=== PATIENT | female | born 1985 | race Caucasian/White ===

== ENCOUNTER 2019-02-26 08:52 | Inpatient (IN) | payer MEDICAID ==
[~2019-02-26] VITALS: Ht 154.9 cm; Wt 61.2 kg
[~2019-02-26 08:52] MED LIST: PNV1CAPS17
[2019-02-26] MEDS ORDERED: LACTATED RINGERS 1,000 ML IV SCH (09:40)
[2019-02-26 09:54] LABS: UCG SCREEN NEGATIVE
[2019-02-26] MEDS ORDERED: EPINEPHRINE 1:1000 1 MG/ML AMP ONE (10:05)
[2019-02-26] MEDS ORDERED: MORPHINE SULFATE/PF 1MG/ML 10ML AMP ONE (10:05)
[2019-02-26] MEDS ORDERED: BUPIVACAINE HCL/EPINEPHRINE/PF 0.5%/0.0005 10ML ONE (10:29)
[2019-02-26] MEDS ORDERED: ROPIVACAINE HCL 10MG/ML 20 ML VIAL EPI ONE (10:34)
[2019-02-26] MEDS ORDERED: FENTANYL CITRATE/PF 50MCG/ML 2ML VIAL ONE ×3 (10:38→14:15)
[2019-02-26] MEDS ORDERED: CEFAZOLIN SODIUM 1000MG/VIAL ONE (10:38)
[2019-02-26] MEDS ORDERED: ROCURONIUM BROMIDE 10MG/ML VIAL 5ML IV ONE (10:38)
[2019-02-26] MEDS ORDERED: MIDAZOLAM HCL 2 MG/2 ML VIAL ONE (10:38)
[2019-02-26] MEDS ORDERED: GLYCOPYRROLATE 0.2 MG/ML 2ML VIAL ONE (10:38)
[2019-02-26] MEDS ORDERED: NEOSTIGMINE METHYLSULFATE 1MG/ML 10 ML VIAL ONE (10:38)
[2019-02-26] MEDS ORDERED: SODIUM CHLORIDE 0.9% 10ML VIAL ONE (10:38)
[2019-02-26] MEDS ORDERED: PROPOFOL 200MG/20ML VIAL IV ONE ×2 (10:38→11:06)
[2019-02-26] MEDS ORDERED: METOCLOPRAMIDE HCL 10MG/2ML VIAL ONE (10:39)
[2019-02-26] MEDS ORDERED: ONDANSETRON HCL 4MG/2ML INJ ONE (10:39)
[2019-02-26] MEDS ORDERED: PHENYLEPHRINE HCL 10 MG/ML 1ML (IV VIAL) IV ONE (10:39)
[2019-02-26] MEDS ORDERED: SUCCINYLCHOLINE CHLORIDE 200MG/10ML IV ONE (10:39)
[2019-02-26] MEDS ORDERED: DEXAMETHASONE 4MG/ML 1ML VIAL ONE (10:39)
[2019-02-26] MEDS ORDERED: EPHEDRINE SULFATE 50MG/ML VIAL ONE (10:39)
[2019-02-26] MEDS ORDERED: BUPIVACAINE HCL/EPINEPHRINE 0.25%/0.0005 50ML ONE (11:35)
[2019-02-26] MEDS ORDERED: SODIUM CHLORIDE 0.9% 1,000 ML IV ONE (14:39)
[2019-02-26] MEDS ORDERED: HYDROMORPHONE HCL/PF 2MG/ML CPJ IV PRN (14:45)
[2019-02-26] MEDS ORDERED: MORPHINE SULFATE 2 MG/ML CPJ (NOT FOR IM USE) IV PRN (14:45)
[2019-02-26] MEDS ORDERED: MEPERIDINE HCL/PF 25MG/ML CPJ IV PRN ×2 (14:45)
[2019-02-26] MEDS ORDERED: ONDANSETRON HCL 4MG/2ML INJ IV PRN ×2 (14:45→17:00)
[2019-02-26] MEDS ORDERED: HYDROMORPHONE PCA 10MG/50ML IV PRN (16:00)
[2019-02-26] MEDS ORDERED: NALOXONE INJ IV PRN (16:00)
[2019-02-26] MEDS ORDERED: DIPHENHYDRAMINE INJ IV PRN (16:00)
[2019-02-26] MEDS ORDERED: ONDANSETRON INJ IV PRN (16:00)
[2019-02-26] MEDS ORDERED: HYDROCODONE/ACETAMINOPHEN 5/325MG TABLET PO PRN ×2 (17:00)
[2019-02-26] MEDS ORDERED: ACETAMINOPHEN 325MG TABLET PO PRN (17:00)
[2019-02-26 20:00] VITALS: BP 98/51
[2019-02-26] MEDS ORDERED: ZOLPIDEM TARTRATE 5MG TABLET PO PRN (21:00)
[2019-02-26 23:30] VITALS: BP 104/65
[2019-02-27] VITALS: BP 96/59
[2019-02-27] MEDS: CEFAZOLIN 2,000 MG in DEXT 5% WATER 100 ML IV SCH ×2 (03:44→09:55)
[2019-02-27 04:00] VITALS: BP 98/51
[2019-02-27 08:00] VITALS: BP 100/58
[2019-02-27 08:57] LABS: BASOPHILS % 0.2 % (0.0-2.0); EOSINOPHILS % 0.2 % (0.0-5.0); HEMATOCRIT. 35.2 % (36.0-48.0); LYMPHOCYTES % 22.1 % (20.0-50.0); MEAN CORPUSCULAR HEMOGLOBIN 31.8 pg (28.0-32.0); MEAN CORPUSCULAR VOLUME 93.4 fL (81.0-99.0); MEAN PLATELET VOLUME 8.2 fl (7.4-10.4); MONOCYTES % 10.1 % (2.0-8.0); NEUTROPHILS % 67.4 % (40.0-76.0); PLATELET 249 x1000/uL (130-400); RED BLOOD CELL COUNT 3.76 mill/uL (4.2-5.4); RED CELL DISTRIBUTION WIDTH 13.4 % (11.6-14.6)
[2019-02-27 09:04] LABS: CHLORIDE 108 mEq/L (98-107)
[2019-02-27] MEDS: CELECOXIB 200MG CAPSULE PO SCH ×2 (09:56→16:28)
[2019-02-27 12:00] VITALS: BP 109/67
[2019-02-27] MEDS ORDERED: ENOXAPARIN 40MG/0.4ML SYR SUBCUT SCH (12:00)
[2019-02-27] MEDS ORDERED: POTASSIUM CHLORIDE 20MEQ TABLET SR PO SCH (12:00)
[2019-02-27 14:58] VITALS: BP 132/78
== END 2019-02-27 17:30 | disposition home or self-care (01) | DRG 313 ==
LOC: OR 08:52 → 6EST 23:04
PROVIDERS: ADMIT Orthopaedic Surgery; ATTEND Orthopaedic Surgery
PROC: 0MRN47Z Replacement of Right Knee Bursa and Ligament with Autologous Tissue Substitute, Percutaneous Endoscopic Approach (ICD-10-PCS; principal; 2019-02-26)
PROC: 0SBC4ZZ Excision of Right Knee Joint, Percutaneous Endoscopic Approach (ICD-10-PCS; 2019-02-26)
PROC: 0LBQ4ZZ Excision of Right Knee Tendon, Percutaneous Endoscopic Approach (ICD-10-PCS; 2019-02-26)
DX: S83.511A Sprain of anterior cruciate ligament of right knee, initial encounter (principal); M65.9 Synovitis and tenosynovitis, unspecified; S83.241A Other tear of medial meniscus, current injury, right knee, initial encounter; S83.281A Other tear of lateral meniscus, current injury, right knee, initial encounter; M94.261 Chondromalacia, right knee; Y92.89 Other specified places as the place of occurrence of the external cause; Y99.8 Other external cause status; Y92.322 Soccer field as the place of occurrence of the external cause; Y93.66 Activity, soccer
CPT/HCPCS: 36415; 80048; 81025; 88304; 88311; 97162; 97535; J0171; J0330; J0690; J1100; J1170; J1650; J2250; J2274; J2370; J2405; J2704; J2710; J2765; J2795; J3010; J3490; J7040; J7060